=== PATIENT | female | born 1985 | race Caucasian/White ===

== ENCOUNTER 2020-11-24 14:37 | Emergency (ER) | payer BC, SELFPAY ==
[2020-11-24 14:45] VITALS: BP 116/81; PULSE 83; RESP 18; TEMP 36.5; O2SAT 97; BMI 19.9
[2020-11-24 19:37] VITALS: BP 149/83; PULSE 84; RESP 18; O2SAT 96
[2020-11-24 20:30] VITALS: BP 135/87; PULSE 84; RESP 22; O2SAT 97
--- NOTE | 2020-11-24 20:36 | USR_ITS ---
PROCEDURE INFORMATION: Exam: US Duplex Left Lower Extremity Veins, Limited Exam date and time: 11/24/2020 8:36 PM Age: 35 years old Clinical indication: Swelling (edema) of limb; Lower extremity, left; Prior surgery; Surgery date: 1-6 months; Surgery type: Left knee post op; Additional info: Swelling and pain post op TECHNIQUE: Imaging protocol: Real-time Duplex ultrasound of the Left Lower Extremity with 2-D [place] scale, color Doppler flow and spectral waveform analysis with image documentation. Limited exam focused on the left lower extremity veins. COMPARISON: CT abdomen pelvis wo con [id number] 05/24/2014 1:34 AM FINDINGS: Left deep veins: Unremarkable. The common femoral, femoral, proximal profunda femoral and popliteal veins are patent without thrombus. Normal Doppler waveforms. Normal compressibility and/or augmentation response. Left superficial veins: Unremarkable. Saphenofemoral junction is patent without thrombus. Soft tissues: Unremarkable. US/CV venous duplex [facility] [id number] IMPRESSION: No evidence of deep vein thrombosis, left lower extremity.
--- NOTE | 2020-11-24 20:36 | CTR_ITS ---
PROCEDURE INFORMATION: Exam: CT Head Without Contrast Exam date and time: 11/24/2020 8:36 PM Age: 35 years old Clinical indication: Pain; Headache not specified; Patient HX: C/O CORNEJO w all extremity parasthesia; Additional info: Headache, paresthesias TECHNIQUE: Imaging protocol: Computed tomography of the head without contrast. Radiation optimization: All CT scans at this facility use at least one of these dose optimization techniques: automated exposure control; mA and/or kV adjustment per patient size (includes targeted exams where dose is matched to clinical indication); or iterative reconstruction. COMPARISON: No relevant prior studies available. RADIATION DOSE METRICS: Total DLP (mGy-cm): 808.45 FINDINGS: Brain: Unremarkable. No hemorrhage. No significant white matter disease. No edema. Cerebral ventricles: No ventriculomegaly. Paranasal sinuses: Mucoperiosteal thickening in the bilateral frontal and bilateral ethmoid sinuses. Small retention cyst in the upper portion of the right maxillary sinus. Sphenoid sinuses are clear. No air-fluid levels in the sinuses. Mastoid air cells: Unremarkable as visualized. No mastoid effusion. Bones/joints: Unremarkable. No acute fracture. Soft tissues: Unremarkable. CT/CT head wo con* [id number] IMPRESSION: 1. Moderate bilateral ethmoid sinus disease. 2. No acute intracranial abnormality demonstrated. Radiation Dose CTDIVOL = (mGy): DLP = 808.45 (mGy-cm)
--- NOTE | 2020-11-24 20:48 | ED_ITS ---
HPI - General Adult General: Chief complaint: General Medical Stated complaint: SURGERY RELATED ISSUES Time Seen by Provider: 11/24/20 20:14 History of Present Illness: HPI narrative: 35-year-old healthy patient. She does have a history of migraine headache. She presents after waking this morning with a headache. She says this morning, she had a normal headache for her. The pain progressed throughout the day. After lunch some time, she began to get sick. She vomited. She notes that she began to get paresthesias bilaterally to her upper and lower extremities, that she began to shake and tremble, to the point where she could not stand up, and she got numbness and tingling around her lips as well. This of course does not usually happen with her normal headaches. She had arthroscopic knee surgery 2 weeks ago on the left side, and recently fell on that knee and has had more pain and swelling since Onset (ago): hour(s) Location: head Radiation: non-radiation Severity: moderate Quality: aching Pain Consistency: constant Relieving factors: none Exacerbating factors: none Associated symptoms: Reports headache(s), malaise, nausea, vomiting and other; Deny chest pain, confusion, cough, diaphoresis, decreased appetite, dyspnea, fevers/chills, seizures, short of breath or syncope Treatments prior to arrival: other (tylenol) Review of Systems Const: Reports: malaise; Denies: diaphoresis Eyes: Denies: change in vision Card: Denies: chest pain or syncope Resp: Denies: dyspnea GI: Reports: nausea and vomiting : Denies: difficulty voiding Neuro: Reports: headache(s), numbness in extremities and involuntary movements (trembling); Denies: confusion Physical Exam Const: GENERAL APPEARANCE: cooperative and well developed ORIENTATION/CONSCIOUSNESS: Yes oriented to person, Yes oriented to place and Yes oriented to time HENMT: COMMON NORMALS: normocephalic HEAD & SCALP: normocephalic Eye: COMMON NORMALS: Equal, round and reactive pupils present, EOMs intact bilaterally and conjunctivae normal EYELID: eyelids normal CONJUNCTIVA: Yes conjunctivae normal PUPIL: Yes Equal, round and reactive pupils present Neck/C-Spine: GENERAL: No tracheal deviation Chest: COMMONS NORMALS: normal inspection of the chest CHEST: No tenderness Resp: COMMON NORMALS: clear to auscultation bilaterally EFFORT & INSPECTION: No tachypneic, No respiratory distress, No retractions, No uses accessory muscles and No tracheal deviation AUSCULTATION: clear to auscultation bilaterally, no rhonchi, no wheezes and lung sounds not diminished Cardio: COMMON NORMALS: regular rate and regular rhythm RATE: regular rate RHYTHM: regular rhythm HEART SOUNDS: no murmurs PERIPHERAL PULSES: radial pulses present GI: INSPECTION: No abdominal distension AUSCULTATION: No Hyperactive bowel sounds present and No Hypoactive bowel sounds present Neuro: KEEGAN COMA SCALE: document [facility] findings Keegan coma scale eye opening: Spontaneous [place] coma scale verbal response: Orientated [place] coma scale motor response: Obey commands [place] coma scale total score: 15 COMMON NORMALS: no focal motor deficits SENSORIUM/ORIENTATION: Yes oriented to person, Yes oriented to place and Yes oriented to time SPEECH: speech normal MOTOR EXAM: Tremors during motor activity present (trembling, diffuse) Psych: COMMON NORMALS: mental status grossly normal Skin: COMMON NORMALS: no rashes or lesions noted GENERAL SKIN EXAM: no rashes or lesions noted Course Vital Signs: Vital signs: Vital Signs Temperature 97.7 F 11/24/20 14:45 Pulse Rate 74 11/24/20 23:42 Respiratory Rate 18 11/24/20 23:42 Blood Pressure 108/64 11/24/20 23:42 Pulse Oximetry 99 11/24/20 23:42 MDM - General Adult MDM Narrative: Medical decision making narrative: After fluid, and Zofran, h eadache and nausea are much improved. She will be given Reglan to help with both as well. Her laboratory is normal. Her head CT is negative. Doppler ultrasound of the left lower extremity is negative for DVT. She will be allowed home Lab Data: Labs: Lab Results 11/24/20 11/24/20 11/24/20 Range/Units 20:45 20:45 20:45 WBC 9.8 (4.0-10.0) 10^3/ uL RBC 4.83 (4.1-5.3) 10^6/u L Hgb 14.2 (11.5-15.3) g/dL Hct 44.2 (37.0-47.0) % MCV 91.5 (81-99) fL MCH 29.4 (28.0-34.0) pg MCHC 32.1 (30.0-36.0) g/dL RDW 13.0 (12.1-15.1) % Plt Count 289 (130-400) 10^3/c mm MPV 9.2 (7.4-10.4) fL Neut % (Auto) 71.4 % Lymph % (Auto) 20.3 % [place] % (Auto) 5.3 % Eos % (Auto) 1.8 % Baso % (Auto) 0.8 % Neut # (Auto) 6.97 (1.8-7.7) 10^3/u L Lymph # (Auto) 2.0 (0.8-4.8) 10^3/u L [place] # (Auto) 0.5 (0.2-0.9) 10^3/u L Eos # (Auto) 0.2 (0.0-0.8) 10^3/u L Baso # (Auto) 0.1 (0.0-0.1) 10^3/u L Nucleated RBC % (a uto) 0 % Nucleated RBCs # 0.0 /100WBC Sodium 141 (136-145) mmol/L Potassium 4.0 (3.5-5.1) mmol/L Chloride 107 (98-107) mmol/L Carbon Dioxide 24 (22-29) mmol/L Anion Gap 14.0 (5-19) BUN 10 (6-20) mg/dL Creatinine 0.6 (0.5-0.9) mg/dL GFR Calculation 112.5 (90-130) mL/min Glucose 92 (65-115) mg/dL Calculated Osmolal ity 291 (285-295) mOsm/k g Calcium 8.7 (8.5-10.5) mg/dL Magnesium 1.9 (1.7-2.3) mg/dL Total Bilirubin 0.3 (0.15-1.2) mg/dL AST 18 (0-32) U/L ALT 16 (0-33) U/L Alkaline Phosphata se 92 (35-105) IU/L Creatine Kinase 133 (26-192) U/L Total Protein 7.4 (6.6-8.7) g/dL Albumin 4.3 (3.5-5.2) g/dL Globulin 3.1 (1.3-4.6) g/dL HCG, Qual Negative (Negative) Urine Color (Yellow) Urine Appearance (CLEAR) Urine pH (5-7) Ur Specific Gravit y (1.005-1.030) Urine Protein (Negative) Urine Glucose (UA) (Normal) Urine Ketones (Negative) Urine Blood (Negative) Urine Nitrate (Negative) Urine Bilirubin (Negative) Urine Urobilinogen (Negative) mg/dL Ur Leukocyte Inés ase (Negative) Urine RBC (0-2) /hpf Urine WBC (0-5) /hpf Ur Squamous Epith Cells (0-5) /hpf Amorphous Sediment /hpf Urine Bacteria (NONE) /hpf Urine Mucus /hpf 11/24/20 Range/Units 20:45 WBC (4.0-10.0) 10^3/ uL RBC (4.1-5.3) 10^6/u L Hgb (11.5-15.3) g/dL Hct (37.0-47.0) % MCV (81-99) fL MCH (28.0-34.0) pg MCHC (30.0-36.0) g/dL RDW (12.1-15.1) % Plt Count (130-400) 10^3/c mm MPV (7.4-10.4) fL Neut % (Auto) % Lymph % (Auto) % [place] % (Auto) % Eos % (Auto) % Baso % (Auto) % Neut # (Auto) (1.8-7.7) 10^3/u L Lymph # (Auto) (0.8-4.8) 10^3/u L [place] # (Auto) (0.2-0.9) 10^3/u L Eos # (Auto) (0.0-0.8) 10^3/u L Baso # (Auto) (0.0-0.1) 10^3/u L Nucleated RBC % (a uto) % Nucleated RBCs # /100WBC Sodium (136-145) mmol/L Potassium (3.5-5.1) mmol/L Chloride (98-107) mmol/L Carbon Dioxide (22-29) mmol/L Anion Gap (5-19) BUN (6-20) mg/dL Creatinine (0.5-0.9) mg/dL GFR Calculation (90-130) mL/min Glucose (65-115) mg/dL Calculated Osmolal ity (285-295) mOsm/k g Calcium (8.5-10.5) mg/dL Magnesium (1.7-2.3) mg/dL Total Bilirubin (0.15-1.2) mg/dL AST (0-32) U/L ALT (0-33) U/L Alkaline Phosphata se (35-105) IU/L Creatine Kinase (26-192) U/L Total Protein (6.6-8.7) g/dL Albumin (3.5-5.2) g/dL Globulin (1.3-4.6) g/dL HCG, Qual (Negative) Urine Color Yellow (Yellow) Urine Appearance Clear (CLEAR) Urine pH 6 (5-7) Ur Specific Gravit y 1.025 (1.005-1.030) Urine Protein Neg (Negative) Urine Glucose (UA) Norm (Normal) Urine Ketones 2+ H (Negative) Urine Blood 2+ H (Negative) Urine Nitrate Negative (Negative) Urine Bilirubin Neg (Negative) Urine Urobilinogen Norm (Negative) mg/dL Ur Leukocyte Inés ase Negative (Negative) Urine RBC 5-10 H (0-2) /hpf Urine WBC None (0-5) /hpf Ur Squamous Epith Cells 15-25 H (0-5) /hpf Amorphous Sediment 1+ /hpf Urine Bacteria 1+ H (NONE) /hpf Urine Mucus 1+ /hpf Discharge Plan Discharge Patient Disposition: Home Condition: Stable Discharge Orders: Discharge ED (Routine); Ordered 11/24/20 Ordered By: Michael Elizabeth Referrals: Kt Candelaria MD [Primary Care Provider] - Discharge Diet: Advance as tolerated Discharge Activity: Increase activity as tolerated Patient Instructions: Headache - Migraine (Adult), Dehydration (ED) Activity Restrictions/Additional Instructions: Return for worsening headache, mental status changes, vomiting liquids, fever greater than 100, any other concerning symptoms. Coding Level of Care Code ED Assessment Manager for Tishag Fwd Exam Comprehensive
[2020-11-24 21:10] LABS: Basophils # 0.1 10^3/uL (0.0-0.1); Basophils % 0.8 %; Eosinophils # 0.2 10^3/uL (0.0-0.8); Eosinophils % 1.8 %; Hematocrit 44.2 % (37.0-47.0); Hemoglobin 14.2 g/dL (11.5-15.3); Lymphocytes % 20.3 %; Mean Corpuscular HGB Conc 32.1 g/dL (30.0-36.0); Mean Corpuscular Hemoglobin 29.4 pg (28.0-34.0); Mean Corpuscular Volume 91.5 fL (81-99); Mean Platelet Volume 9.2 fL (7.4-10.4); Monocytes # 0.5 10^3/uL (0.2-0.9); Monocytes % 5.3 %; Neutrophils # 6.97 10^3/uL (1.8-7.7); Neutrophils % 71.4 %; Nucleated Red Blood Cells % 0 %; Platelet Count 289 10^3/cmm (130-400); Red Blood Count 4.83 10^6/uL (4.1-5.3); Urine Appearance Clear (CLEAR); Urine Color Yellow (Yellow); White Blood Count 9.8 10^3/uL (4.0-10.0)
[2020-11-24 21:11] LABS: Add Urine Microscopic? YES; Bilirubin Urine Neg (Negative); Blood Urine 2+ (Negative); Glucose Urine UA Norm (Normal); Ketones Urine 2+ (Negative); Leukocyte Esterase Urine Negative (Negative); Nitrate Urine Negative (Negative); Protein Urine Neg (Negative); Specific Gravity, Urine 1.025 (1.005-1.030); Urobilinogen Urine Norm (Negative); pH Urine 6 (5-7)
[2020-11-24] MEDS: sodium chloride 0.9% 1,000 ML 999 ML IV (21:12)
[2020-11-24] MEDS: ondansetron 2 mg/ML SDV 2 mL 4 MG IVP (21:13)
[2020-11-24 21:15] LABS: Add Urine Culture? No; Amorphous Sediment Urine 1+ /hpf; Bacteria Urine 1+ /hpf; Mucus Urine 1+ /hpf; Squamous Epithelial Cell Urine 15-25 /hpf (0-5)
[2020-11-24 21:18] LABS: HCG, Serum Qual Negative (Negative)
[2020-11-24 21:24] LABS: Alanine Aminotransferase 16 U/L (0-33); Albumin Level 4.3 g/dL (3.5-5.2); Alkaline Phosphatase 92 IU/L (35-105); Aspartate Amino Transferase 18 U/L (0-32); Blood Urea Nitrogen 10 mg/dL (6-20); Calcium 8.7 mg/dL (8.5-10.5); Carbon Dioxide 24 mmol/L (22-29); Chloride 107 mmol/L (98-107); Creatine Phosphokinase 133 U/L (26-192); Globulin 3.1 g/dL (1.3-4.6); Glomerular Filtration Rate 112.5 mL/min (90-130); Glucose 92 mg/dL (65-115); Magnesium 1.9 mg/dL (1.7-2.3); Osmolality Calculated 291 mOsm/kg (285-295); Sodium 141 mmol/L (136-145); Total Bilirubin 0.3 mg/dL (0.15-1.2); Total Protein 7.4 g/dL (6.6-8.7)
[2020-11-24 21:25] VITALS: BP 115/79; PULSE 76; RESP 18; O2SAT 98
[2020-11-24 22:00] VITALS: BP 101/67; PULSE 74; RESP 18; O2SAT 99
[2020-11-24] MEDS: metoclopramide 5 mg/mL SDV 2 mL 10 MG IVP (23:30)
[2020-11-24 23:42] VITALS: BP 108/64; PULSE 74; RESP 18; O2SAT 99
== END 2020-11-24 23:35 | disposition home or self-care (01) ==
PROVIDERS: Emergency Provider Emergency Medicine; PCP General Practice
DX: G43.909 Migraine, unspecified, not intractable, without status migrainosus (principal)
CPT/HCPCS: 70450; 80053; 81001; 82550; 83735; 84703; 85025; 93971; 96361; 96374; 96375; 99284; J2405; J2765; J3010; J7030